=== PATIENT | female | born 2000 | race Two or more races ===

== ENCOUNTER 2019-06-21 20:35 | Emergency (ER) | payer MEDICAID ==
[~2019-06-21] VITALS: Ht 160 cm; Wt 79.8 kg
[2019-06-21 21:00] VITALS: BP 135/90
[2019-06-22] MEDS ORDERED: METHOCARBAMOL 500 MG TAB PO ONE (00:15)
[2019-06-22] MEDS ORDERED: IBUPROFEN 800 MG TAB PO ONE (00:15)
== END 2019-06-22 00:52 | disposition home or self-care (01) ==
LOC: ER 20:37
DX: S10.93XA Contusion of unspecified part of neck, initial encounter (principal); M25.532 Pain in left wrist; M62.838 Other muscle spasm; R51 Headache; V89.2XXA Person injured in unspecified motor-vehicle accident, traffic, initial encounter; Y93.89 Activity, other specified; Y92.89 Other specified places as the place of occurrence of the external cause; Y99.8 Other external cause status
CPT/HCPCS: 71250; 72125; 73110; 81002; 81025